=== PATIENT | female | born 1975 | race African-American/Black ===

== ENCOUNTER 2019-11-04 00:57 | Emergency (ER) | payer BC ==
[~2019-11-04] VITALS: Ht 162.6 cm; Wt 82.7 kg
[2019-11-04 01:04] VITALS: BP 121/54; Ht 162.6 cm; Wt 82.7 kg
== END 2019-11-04 01:43 | disposition home or self-care (01) ==
LOC: D.ER 00:57
DX: H57.13 Ocular pain, bilateral (principal)

== ENCOUNTER 2019-11-04 02:51 | Emergency (ER) | payer BC ==
[~2019-11-04] VITALS: Ht 162.6 cm; Wt 82.7 kg
[2019-11-04 03:09] VITALS: Ht 162.6 cm; Wt 82.7 kg
[2019-11-04 04:05] LABS: BASOPHILS 0.1 % (0-2); EOSINOPHILS 0.7 % (0-7); HEMATOCRIT 39.5 % (36.0-48.0); HEMOGLOBIN 12.1 g/dL (12-16); IMMATURE GRANULOCYTES 0.1 % (0-5); LYMPHOCYTES 21.2 % (15-50); MCH 25.2 pg (26.0-34.0); MCHC 30.6 g/dL (31.0-37.0); MCV 82.3 fL (80.0-100.0); MEAN PLATELET VOLUME 9.6 fL (7.4-10.4); MONOCYTES 3.9 % (2-11); RDW 16.3 % (11.5-14.5); WBC 9.2 10x3/uL (4.8-10.8)
[2019-11-04 04:06] LABS: PLATELET COUNT 238 10x3/uL (130-400)
[2019-11-04 04:16] LABS: CALC OSMOLALITY 277 mosm/kg (275-300); CALCIUM 8.3 mg/dL (8.5-10.1); CARBON DIOXIDE 29.8 mmol/L (21.0-32.0); CHLORIDE - SERUM 105 mmol/L (98-107); CREATININE - SERUM 0.8 mg/dL (0.6-1.3); GLUCOSE 119 mg/dL (74-106); POTASSIUM - SERUM 3.9 mmol/L (3.5-5.1); SODIUM 140 mmol/L (136-145); UREA NITROGEN 6 mg/dL (7-18); eGFR NON AFRICAN AMERICAN 82 mL/min (90-120)
[2019-11-04 04:22] LABS: ALBUMIN 3.1 g/dL (3.4-5.0); ALKALINE PHOSPHATASE 114 U/L (30-120); ALT (SGPT) 23 U/L (10-68); BILIRUBIN - TOTAL 0.14 mg/dL (0.2-1.3); C-REACTIVE PROTEIN 0.2 mg/dL (0.0-0.9); PROTEIN - SERUM 7.1 g/dL (6.4-8.2)
[2019-11-04 06:07] VITALS: BP 126/74
== END 2019-11-04 06:07 | disposition home or self-care (01) ==
LOC: D.ER 02:51
PROVIDERS: Family Medicine
DX: H57.13 Ocular pain, bilateral (principal)